=== PATIENT | female | born 1955 | race Hispanic/Latino ===

== ENCOUNTER 2020-03-03 20:58 | Emergency (ER) | payer BC ==
[2020-03-03] MEDS ORDERED: METOCLOPRAMIDE 10 MG/2mL INJ ONE (22:10)
[2020-03-03] MEDS ORDERED: NA CHLORIDE 0.9% 1,000 ML ONE (22:11)
[2020-03-03] MEDS ORDERED: DIPHENHYDRAMINE 50 MG/ML VIAL ONE (22:11)
[2020-03-03 22:13] LABS: Absolute Lymphocytes (CBC) 1.2 K/uL (0.7-4.9); Basophils % 0.5 % (0-1.3); Hematocrit 36.4 % (36.0-45.0); Lymphocytes % 13.8 % (15.3-44.8); MPV 9.6 fL (7.6-11.3); RBC Red Blood Cell Count 4.08 M/uL (3.86-4.86)
[2020-03-03 22:16] LABS: Protime INR 0.98
[2020-03-03 22:24] LABS: ALT/SGPT 38 U/L (12-78); AST/SGOT 21 U/L (15-37); Albumin 4.3 g/dL (3.4-5.0); Alkaline Phosphatase 98 U/L (45-117); BUN Blood Urea Nitrogen 20 mg/dL (7-18); Bicarbonate 25 mmol/L (21-32); Bilirubin Direct < 0.1 mg/dL (0-0.2); Bilirubin Total 0.4 mg/dL (0.2-1.0); Glucose Level 114 mg/dL (74-106); Magnesium 2.7 mg/dL (1.8-2.4); Potassium 3.8 mmol/L (3.5-5.1); Protein, Total 8.4 g/dL (6.4-8.2); Sodium Level 141 mmol/L (136-145)
[2020-03-04] MEDS ORDERED: CEFTRIAXONE/SWI 1gm 1 GM/10 ML SYR ONE (00:48)
--- NOTE | 2020-03-04 00:48 | EDPHYS ---
Physician Documentation [facility] Name: Malena Mckeon Age: 64 yrs Sex: Female : 1955 Arrival Date: 03/03/2020 Time: 20:59 Bed 18 Private MD: ED Physician Joe Hairston HPI: 03/03 22:52 This 64 yrs old Female presents to ER via Ambulatory with complaints of mh7 Migraine, Nausea. 22:52 The patient complains of pain to the top of head. The patient describes the headache as mh7 intermittent, throbbing. Onset: The symptoms/episode began/occurred 6 day(s) ago. Associated signs and symptoms: Pertinent positives: nausea, Photophobia Right facial Smith's palsy for 3 days, Pertinent negatives: altered mental status, dizziness, fever, malaise, neck stiffness, paresthesias, rash, sinus congestion, sinus tenderness, vision changes, vision loss, vomiting, weakness, vertigo. Severity of symptoms: At its worst the pain was moderate, 5 day(s) ago, in the emergency department the pain has improved, moderately. Headache History: The patient has had previous headaches and this one is similar to previous episodes. The symptoms are alleviated by NSAIDS, the symptoms are aggravated by lights, movement, noise, stress. 03/04 00:43 Patient reports symptoms started after receiving COVID vaccine.. mh7 Historical: - Allergies: 03/03 21:23 No Known Allergies; ll1 - PMHx: 21:23 Hypothyroidism; High Cholesterol; ll1 - PSHx: 21:23 Cholecystectomy; mass removed from breast; ll1 - Immunization history:: Flu vaccine is up to date. - Social history:: Smoking status: Patient denies any tobacco usage or history of. ROS: 22:52 Constitutional: Negative for fever, chills, and weight loss, Eyes: Negative for injury, mh7 pain, redness, and discharge, ENT: Negative for injury, pain, and discharge, Neck: Negative for injury, pain, and swelling, Cardiovascular: Negative for chest pain, palpitations, and edema, Respiratory: Negative for shortness of breath, cough, wheezing, and pleuritic chest pain, Back: Negative for injury and pain, : Negative for injury, bleeding, discharge, and swelling, MS/Extremity: Negative for injury and deformity, Skin: Negative for injury, rash, and discoloration, Psych: Negative for depression, anxiety, suicide ideation, homicidal ideation, and hallucinations, Allergy/Immunology: Negative for hives, rash, and allergies, Endocrine: Negative for neck swelling, polydipsia, polyuria, polyphagia, and marked weight changes, Hematologic/Lymphatic: Negative for swollen nodes, abnormal bleeding, and unusual bruising. Exam: 22:52 Constitutional: This is a well developed, well nourished patient who is awake, alert, mh7 and in no acute distress. 22:52 Head/Face: Normocephalic, atraumatic. 22:52 Neck: Trachea midline, no thyromegaly or masses palpated, and no cervical lymphadenopathy. Supple, full range of motion without nuchal rigidity, or vertebral point tenderness. No Meningismus. Chest/axilla: Normal chest wall appearance and motion. Nontender with no deformity. No lesions are appreciated. Cardiovascular: Regular rate and rhythm with a normal S1 and S2. No gallops, murmurs, or rubs. Normal PMI, no JVD. No pulse deficits. Respiratory: Lungs have equal breath sounds bilaterally, clear to auscultation and percussion. No rales, rhonchi or wheezes noted. No increased work of breathing, no retractions or nasal flaring. Abdomen/GI: Soft, non-tender, with normal bowel sounds. No distension or tympany. No guarding or rebound. No evidence of tenderness throughout. Back: No spinal tenderness. No costovertebral tenderness. Full range of motion. Skin: Warm, dry with normal turgor. Normal color with no rashes, no lesions, and no evidence of cellulitis. MS/ Extremity: Pulses equal, no cyanosis. Neurovascular intact. Full, normal range of motion. 22:52 Psych: Awake, alert, with orientation to person, place and time. Behavior, mood, and affect are within normal limits. 22:52 Head/face: 22:52 Eyes: Periorbital structures: appear normal, Pupils: equal, round, and reactive to light and accomodation, Extraocular movements: intact throughout, Conjunctiva: normal, Corneas: are normal, Sclera: no appreciated abnormality, Lids and lashes: ptosis, of the right eye, funduscopic exam reveals no obvious abnormalities, Visual herrera: are intact, Nystagmus: is not appreciated. 22:52 Neuro: Orientation: is normal, Mentation: is normal, Memory: is normal, Cranial nerves: Funduscopic exam reveals no obvious abnormalities, extraocular movements are intact, facial droop noted on right, with forehead involved. Ptosis of right lower eyelid, Cerebellar function: is grossly normal, Motor: is normal, Sensation: is normal, Gait: is steady, at a normal pace, without difficulty, Deep tendon reflexes are normal, Babinski testing is normal, seizure activity, is not displayed by the patient, Abnormal movements: there are no abnormal movements. Vital Signs: 21:20 BP 170 / 91; Pulse 94; Resp 16; Temp 98.8; Pulse Ox 99% on R/A; Weight 63.96 kg; Height ll1 4 ft. 11 in. (149.86 cm); Pain 08/26; 03/04 00:45 BP 126 / 77; Pulse 76; Resp 18; Temp 98.7; Pulse Ox 99% ; ea 03/03 21:20 Body Mass Index 28.48 (63.96 kg, 149.86 cm) ll1 Sheri Coma Score: 00:43 Eye Response: spontaneous(4). Verbal Response: oriented(5). Motor Response: obeys mh7 commands(6). Total: 15. MDM: 03/03 21:10 Patient medically screened. kb 03/04 00:43 Differential diagnosis: cluster headache, cerebral vascular accident, hypertensive mh7 headache, intracerebral hemorrhage, migraine, tension headache, Smith's palsy. Data reviewed: vital signs, nurses notes, lab test result(s), CBC, electrolytes, urinalysis, radiologic studies, CT scan. Data interpreted: Pulse oximetry: on room air is 99 %. Interpretation: normal. Counseling: I had a detailed discussion with the patient and/or guardian regarding: the historical points, exam findings, and any diagnostic results supporting the discharge/admit diagnosis, the presence of at least one elevated blood pressure reading (>120/80) during this emergency department visit, lab results, radiology results, the need for outpatient follow up, a neurologist, to return to the emergency department if symptoms worsen or persist or if there are any questions or concerns that arise at home. Response to treatment: the patient's symptoms have resolved after treatment, the patient's blood pressure is in an acceptable range, mental status has returned to baseline, the patient no longer shows bradycardia, the patient is not short of breath, the patient is not tachycardic, the patient's pain is gone, the patient's temperature has normalized. 03/03 21:41 Order name: CBC with Diff [facility] 03/03 21:41 Order name: Basic Metabolic Panel [facility] 03/03 21:41 Order name: Protime (+inr); Complete Time: 22:26 [facility] 03/03 21:41 Order name: Ptt, Activated; Complete Time: 22:26 [facility] 03/03 21:41 Order name: LFT's; Complete Time: 22:26 [facility] 03/03 21:41 Order name: Magnesium; Complete Time: 22:26 [facility] 03/03 21:41 Order name: CT Head Brain wo Cont [facility] 03/03 21:42 Order name: CBC with Automated Diff; Complete Time: 22:26 EDMS 03/03 21:42 Order name: Basic Metabolic Panel; Complete Time: 22:26 EDMS 03/04 00:31 Order name: Urine Culture 03/04 00:41 Order name: Urine Dipstick--Ancillary (enter results) mw2 Administered Medications: 03/03 22:02 Drug: NS 0.9% 1000 ml Route: IV; Rate: 1000 ml; Site: right antecubital; 03/04 00:49 Follow up: Response: No adverse reaction; IV Status: Completed infusion; IV Intake: ea 1000ml 03/03 22:02 Drug: Reglan 10 mg Route: IVP; Site: right antecubital; ea 03/04 00:49 Follow up: Response: No adverse reaction 03/03 22:02 Drug: Benadryl 50 mg Route: IVP; Site: right antecubital; ea 03/04 00:49 Follow up: Response: No adverse reaction 00:34 Drug: Rocephin 1 grams Route: IV; Rate: 1 bolus; Site: right antecubital; ea 00:55 Follow up: Response: No adverse reaction; IV Status: Completed infusion; IV Intake: 5ml ea Disposition: 03/04/20 00:47 Discharged to Home. Impression: Headache, Smith's palsy, Urinary tract infection, site not specified. - Condition is Stable. - Discharge Instructions: Smith Palsy, Adult, General Headache Without Cause, Urinary Tract Infection, Adult, [id number]. - Prescriptions for Keflex 500 mg Oral Capsule - take 1 capsule by ORAL route every 12 hours for 7 days; 14 capsule. - Medication Reconciliation Form, Thank You Letter, Antibiotic Education, Prescription Opioid Use form. - Follow up: Private Physician; When: 1 - 2 days; Reason: Worsening of condition, Recheck today's complaints, Continuance of care, Re-evaluation by your physician. Follow up: Stan Ann MD; When: 1 - 2 days; Reason: Worsening of condition, Recheck today's complaints. - Problem is an ongoing problem. - Symptoms have improved. Signatures: Dispatcher [employer] EDMS Maryellen Hdez, PLATE AND WELD INSPECTOR-C PLATE AND WELD INSPECTOR-Sonia Chavira RN RN ea Lewis, Lynsay, RN RN ll1 Joe Hairston MD MD mh7 Corrections: (The following items were deleted from the chart) 01:01 00:47 03/04/2020 00:47 Discharged to Home. Impression: Headache; Smith's palsy; Urinary ea tract infection, site not specified. Condition is Stable. Forms are Medication Reconciliation Form, Thank You Letter, Antibiotic Education, Prescription Opioid Use. Follow up: Private Physician; When: 1 - 2 days; Reason: Worsening of condition, Recheck today's complaints, Continuance of care, Re-evaluation by your physician. Follow up: Stan Ann; When: 1 - 2 days; Reason: Worsening of condition, Recheck today's complaints. Problem is an ongoing problem. Symptoms have improved. mh7
--- NOTE | 2020-03-04 00:48 | ER ---
Nurse's Notes [facility] Name: Malena Mckeon Age: 64 yrs Sex: Female : 1955 Arrival Date: 03/03/2020 Time: 20:59 Bed 18 Private MD: Diagnosis: Headache;Smith's palsy;Urinary tract infection, site not specified Presentation: 03/03 21:20 Chief complaint: Patient states: PENA, nausea, and jaw pains since Friday. States she was ll1 diagnosed with Smith's palsy Friday by Dr. Ivy office. Seen at [place] yesterday for PENA. CT and blood work negative. Coronavirus screen: Client denies travel out of the [place] in the last 14 days. At this time, the client does not indicate any symptoms associated with coronavirus-19. Ebola Screen: Patient denies travel to an Ebola-affected area in the 21 days before illness onset. Initial Sepsis Screen: Does the patient meet any 2 criteria? HR > 90 bpm. No. Patient's initial sepsis screen is negative. Does the patient have a suspected source of infection? Yes: S/S of meningitis or endocarditis. Risk Assessment: Do you want to hurt yourself or someone else? Patient reports no desire to harm self or others. Onset of symptoms was February 28, 2020. 21:20 Method Of Arrival: Ambulatory 1 21:20 Acuity: STEFAN 3 ll1 Triage Assessment: 21:24 General: Appears uncomfortable, Behavior is calm, cooperative, appropriate for age. ll1 Pain: Complains of pain in head Pain currently is 7 out of 10 on a pain scale. Quality of pain is described as aching, Pain began 5 days ago. Neuro: Level of Consciousness is awake, alert, obeys commands, Oriented to person, place, time, situation, Appropriate for age Motor Setter are equal bilaterally Moves all extremities. Full function Gait is steady, Speech is normal, Reports headache. Cardiovascular: No deficits noted. Respiratory: No deficits noted. GI: Abdomen is flat, Reports nausea. Historical: - Allergies: 21:23 No Known Allergies; ll1 - PMHx: 21:23 Hypothyroidism; High Cholesterol; ll1 - PSHx: 21:23 Cholecystectomy; mass removed from breast; ll1 - Immunization history:: Flu vaccine is up to date. - Social history:: Smoking status: Patient denies any tobacco usage or history of. Screenin:08 Abuse screen: Denies threats or abuse. Nutritional screening: No deficits noted. ea Tuberculosis screening: No symptoms or risk factors identified. Fall Risk IV access (20 points). Assessment: 22:08 Reassessment: Patient and/or family updated on plan of care and expected duration. Pain ea level reassessed. Patient is alert, oriented x 3, equal unlabored respirations, skin warm/dry/pink. Pt taken to CT. 22:09 Reassessment: Roseanne [phone]. ea 23:21 Reassessment: Patient and/or family updated on plan of care and expected duration. Pain ea level reassessed. Pt resting with eyes closed, respirations even and unlabored, chest expansions even and symmetrical. No s/s of pain or discomfort noted at this time. 03/04 01:00 Reassessment: Patient and/or family updated on plan of care and expected duration. Pain ea level reassessed. Patient is alert, oriented x 3, equal unlabored respirations, skin warm/dry/pink. Discharge instruction given to patient, verbalized the understanding of instruction. Pt left ED ambulatory tolerating well. Vital Signs: 03/03 21:20 BP 170 / 91; Pulse 94; Resp 16; Temp 98.8; Pulse Ox 99% on R/A; Weight 63.96 kg; Height ll1 4 ft. 11 in. (149.86 cm); Pain 7/10; 03/04 00:45 BP 126 / 77; Pulse 76; Resp 18; Temp 98.7; Pulse Ox 99% ; ea 03/03 21:20 Body Mass Index 28.48 (63.96 kg, 149.86 cm) ll1 Sheri Coma Score: 00:43 Eye Response: spontaneous(4). Verbal Response: oriented(5). Motor Response: obeys mh7 commands(6). Total: 15. ED Course: 03/03 20:59 Patient arrived in ED. cl3 21:10 Maryellen Hdez FNP-C is [facility]. kb 21:10 Joe Hairston MD is Attending Physician. kb 21:20 Joe Hairston MD is Attending Physician. mh7 21:20 Arm band placed on Patient placed in an exam room, on a stretcher. ll1 21:23 Triage completed. ll1 21:39 Sonia Quiñones, RN is Primary Nurse. ea 22:00 Patient has correct armband on for positive identification. Call light in reach. Side ea rails up X2. 22:10 CT Head Brain wo Cont In Process Unspecified. EDRI 03/04 00:46 Stan Ann MD is Referral Physician. 7 00:51 No provider procedures requiring assistance completed. ea 00:59 IV discontinued, intact, bleeding controlled, No redness/swelling at site. Pressure ea dressing applied. Administered Medications: 03/03 22:02 Drug: NS 0.9% 1000 ml Route: IV; Rate: 1000 ml; Site: right antecubital; ea 03/04 00:49 Follow up: Response: No adverse reaction; IV Status: Completed infusion; IV Intake: ea 1000ml 03/03 22:02 Drug: Reglan 10 mg Route: IVP; Site: right antecubital; ea 03/04 00:49 Follow up: Response: No adverse reaction ea 03/03 22:02 Drug: Benadryl 50 mg Route: IVP; Site: right antecubital; ea 03/04 00:49 Follow up: Response: No adverse reaction ea 00:34 Drug: Rocephin 1 grams Route: IV; Rate: 1 bolus; Site: right antecubital; ea 00:55 Follow up: Response: No adverse reaction; IV Status: Completed infusion; IV Intake: 5ml ea Intake: 00:49 IV: 1000ml; Total: 1000ml. ea 00:55 IV: 5ml; Total: 1005ml. ea Outcome: 00:47 Discharge ordered by . 7 00:59 Discharged to home ambulatory. ea 00:59 Condition: stable 00:59 Discharge instructions given to patient, Instructed on discharge instructions, follow up and referral plans. medication usage, Demonstrated understanding of instructions, follow-up care, medications. 01:01 Patient left the ED. ea Signatures: Dispatcher [employer] EDRI Maryellen Hdez, NEUROUROLOGIST-C NEUROUROLOGIST-CkSonia Small, RN RN Ricardo Matias cl3 Rufus Ross RN RN 1 Joe Hairston MD MD [facility]
[2020-03-04 01:06] VITALS: O2SAT 99
[2020-03-04 01:06] LABS: Urine Blood NEGATIVE (NEG); Urine Glucose NEGATIVE (NEG); Urine Protein NEGATIVE (NEG); Urine Specific Gravity 1.015 (1.005-1.030)
[2020-03-04 01:08] VITALS: BP 126/77; TEMP 98.7
--- NOTE | 2020-03-04 11:51 | RAD REPORT ---
EXAM DESCRIPTION: CT - Head Brain Wo Cont - 03/03/2020 10:10 pm CLINICAL HISTORY: Smith's Palsy;Headache Headache, drowsiness COMPARISON: Head Brain Wo Cont dated 10/06/2018; 3D SCR AC BILAT W/CAD dated 12/22/2018; 3D SCR AC B ILAT W/CAD dated 01/26/2020 TECHNIQUE: All CT scans are performed using dose optimization technique as appropriate and may inclu de automated exposure control or mA/KV adjustment according to patient size. FINDINGS: No intracranial hemorrhage, hydrocephalus or extra-axial fluid collection.Mild periventric ular and deep white matter chronic microvascular ischemic changes.No areas of brain edema or evidence of midline shift. The paranasal sinuses and mastoids are clear. The calvarium is intact. Vertebral atherosclerosis. IMPRESSION: No acute intracranial abnormality.
== END 2020-03-04 01:01 | disposition home or self-care (01) ==
LOC: ER 20:58
DX: N39.0 Urinary tract infection, site not specified (principal); G51.0 Bell's palsy
CPT/HCPCS: 96365; 96361; 87088; 85025; 87086; 80048; 36415; 83735; 85610; 80076; 85730; 81003; 70450; 96375; 99283; J2765; J1200; J0696; J7030

== ENCOUNTER 2024-07-10 19:46 | Emergency (ER) | payer OTHER ==
[2024-07-10 20:48] LABS: Absolute Basophils 0.1 K/uL (0-0.5); Absolute Eosinophils 0.1 K/uL (0-0.5); Absolute Lymphocytes (CBC) 1.6 K/uL (0.7-4.9); Absolute Monocytes 0.5 K/uL (0.1-1.3); Absolute Neutrophil 3.3 K/uL (1.8-8.0); Basophils % 1.1 % (0-1.3); Eosinophils % 2.6 % (0-4.4); Hematocrit 35.5 % (36.0-45.0); Hemoglobin 12.5 g/dL (12.0-15.0); Lymphocytes % 28.3 % (15.3-44.8); MCH 30.7 pg (27.0-35.0); MCHC 35.1 g/dL (32.0-36.0); MCV 87.5 fL (80-100); Nucleated Red Blood Cells % 0.1 % (0-0); Platelets 230 thou/uL (152-406); RBC Red Blood Cell Count 4.06 M/uL (3.86-4.86); Red Cell Distribution Width 13.5 % (12.1-15.2)
[2024-07-10 20:50] LABS: PT Prothrombin Time 10.2 SECONDS (10-13.0); Protime INR 0.89
--- NOTE | 2024-07-10 21:01 | RAD REPORT ---
EXAMINATION: Head Brain Wo Cont CLINICAL INDICATION: Female, 68 years old.DIZZINESS TECHNIQUE: Axial CT images from the skull base to the vertex without intravenous contrast. Coronal an d sagittal reformatted images were created from the data set. One or more of the following dose reduction techniques were used: Automated exposure control, adjustment of the mA and/or kV according to patient size, and/or iterative reconstruction. Unless otherwise specified, incidental findings do not require dedicated imaging follow-up. [id number]. COMPARISON: 03/03/2020 FINDINGS: INTRACRANIAL: No acute intracranial hemorrhage. No hydrocephalus. No mass effect or midline shift. Mi ld chronic small vessel ischemic changes.Mild cerebral atrophy. VASCULATURE: Intracranial atherosclerotic changes. SCALP/SKULL: No calvarial fracture identified. No acute soft tissue abnormality. SINUSES: The visualized paranasal sinuses are mostly clear. No significant mastoid fluid. IMPRESSION: No acute intracranial abnormality.
[2024-07-10] MEDS ORDERED: KETOROLAC 30 MG/ML INJ ONE (21:02)
[2024-07-10] MEDS ORDERED: DIPHENHYDRAMINE 50 MG/ML VIAL ONE (21:02)
[2024-07-10] MEDS ORDERED: METOCLOPRAMIDE 10 MG/2mL INJ ONE (21:02)
[2024-07-10] MEDS ORDERED: NA CHLORIDE 0.9% 500 ML ONE (21:02)
[2024-07-10] MEDS ORDERED: ONDANSETRON 4 MG/2 ML VIAL ONE (21:02)
[2024-07-10 21:05] LABS: ALT/SGPT 36 U/L (13-56); AST/SGOT 22 U/L (15-37); Albumin 3.6 g/dL (3.4-5.0); Albumin/Globulin Ratio 0.9 (1.1-1.8); Alkaline Phosphatase 90 U/L (45-117); Anion Gap 7.6 mEq/L (5.0-15.0); BUN Blood Urea Nitrogen 9 mg/dL (7-18); Bicarbonate 28 mEq/L (21-32); Bilirubin Total 0.2 mg/dL (0.2-1.0); Globulin 3.9 g/dL (2.3-3.5); Glomerular Filtration Rate 101 ml/min (=/>90); Glucose Level 144 mg/dL (74-106); Magnesium 2.3 mg/dL (1.6-2.4); NT PRO-BNP 52 pg/mL (<125); Potassium 3.6 mEq/L (3.5-5.1); Protein, Total 7.5 g/dL (6.4-8.2); Sodium Level 138 mEq/L (136-145); Thyroid Stimulating Hormone 0.993 uIU/mL (0.358-3.740); Troponin High Sensitivity 5.2 pg/mL (<58.9)
[2024-07-10 21:06] LABS: Bilirubin Direct < 0.2 mg/dL (0-0.2)
--- NOTE | 2024-07-10 21:10 | RAD REPORT ---
EXAM: Chest Single View HISTORY: 68 years Female CHEST PAIN COMPARISON: 09/22/2017 FINDINGS: LUNGS/PLEURA: The lungs are clear. No pleural effusions or pneumothorax. No pulmonary edema. CARDIAC/MEDIASTINUM: The cardiac silhouette is within normal limits. UPPER ABDOMEN: No significant abnormality. BONES: No acute abnormality. LINES/TUBES/OTHER: N/A IMPRESSION: No evidence of acute cardiopulmonary disease. No significant change from prior.
--- NOTE | 2024-07-10 23:59 | EDPHYS ---
Physician Documentation [facility] Name: Malena Mckeon Age: 68 yrs Sex: Female : 1955 Arrival Date: 07/10/2024 Time: 19:46 Bed 5 Private MD: ED Physician Gael Simeon HPI: 07/10 20:06 This 68 yrs old Female presents to ER via Unassigned with complaints of sp4 Dizziness, Headache, Weakness, Chest Tightness. 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 Historical: - Allergies: 20:18 No Known Allergies; dd2 - PMHx: 20:18 High Cholesterol; Hypothyroidism; DEBBIE'S; dd2 - PSHx: 20:18 None; dd2 - Immunization history:: Adult Immunizations up to date. - Infectious Disease History:: Denies. - Social history:: Smoking status: Patient denies any tobacco usage or history of. - Family history:: not pertinent. ROS: 23:51 Constitutional: Positive subjective fever, positive headache, positive nausea, positive sp4 chest discomfort 23:51 All other systems are negative, Exam: 23:51 Constitutional: This is a well developed, well nourished patient who is awake, alert, sp4 and in no acute distress. Head/Face: Normocephalic, atraumatic. Eyes: Pupils equal round and reactive to light, extra-ocular motions intact. Lids and lashes normal. Conjunctiva and sclera are not injected. Cornea within normal limits. Periorbital areas with no swelling, redness, or edema. ENT: Nares patent. No nasal discharge, no septal abnormalities noted. Tympanic membranes are normal and external auditory canals are clear. Oropharynx with no redness, swelling, or masses, exudates, or evidence of obstruction, uvula midline. Mucous membranes moist. Neck: Trachea midline, no thyromegaly or masses palpated, and no cervical lymphadenopathy. Supple, full range of motion without nuchal rigidity, or vertebral point tenderness. Chest/axilla: Normal chest wall appearance and motion. Nontender with no deformity. No lesions are appreciated. Cardiovascular: Regular rate and rhythm with a normal S1 and S2. No gallops, murmurs, or rubs. Normal PMI, no JVD. No pulse deficits. Respiratory: Lungs have equal breath sounds bilaterally, clear to auscultation and percussion. No rales, rhonchi or wheezes noted. No increased work of breathing, no retractions or nasal flaring. Abdomen/GI: Soft, with normal bowel sounds. No distension or tympany. No guarding or rebound. No evidence of tenderness throughout. Back: No spinal tenderness. No costovertebral tenderness. Skin: Warm, dry with normal turgor. Normal color with no rashes, no lesions, and no evidence of cellulitis. MS/ Extremity: Pulses equal, no cyanosis. Neurovascular intact. Full, normal range of motion. Neuro: Awake and alert, GCS 15, oriented to person, place, time, and situation. Cranial nerves II-XII grossly intact. Motor strength 5/5 in all extremities. Sensory grossly intact. Psych: Awake, alert, with orientation to person, place and time. Behavior, mood, and affect are within normal limits 23:51 ECG was reviewed by the Attending Physician. EKG 7 normal sinus rhythm rate 84, normal EKG Vital Signs: 20:13 BP 149 / 94; Pulse 94; Resp 16; Temp 98.4; Pulse Ox 99% on R/A; Weight 64.41 kg; Height dd2 4 ft. 11 in. ; 21:13 BP 149 / 82; Pulse 84; Resp 16; Temp 98.4; Pulse Ox 95% ; Pain 8/10; bm8 22:41 BP 130 / 66; Pulse 77; Resp 18; Temp 98.4; Pulse Ox 100% ; Pain 0/10; bm8 23:13 BP 126 / 62; Pulse 75; Resp 17 S; Pulse Ox 95% ; ha1 23:52 BP 133 / 69; Pulse 75; Resp 17; Temp 98.4; Pulse Ox 96% ; Pain 0/10; bm8 20:13 Body Mass Index 28.68 (64.41 kg, 149.86 cm) dd2 21:13 Pain Scale: Adult bm8 22:41 Pain Scale: Adult bm8 23:52 Pain Scale: Adult bm8 NIH Stroke Scale Scores: 23:58 NIHSS Score: 0 sp4 Sheri Coma Score: 21:13 Eye Response: spontaneous(4). Motor Response: obeys commands(6). Verbal Response: bm8 oriented(5). Total: 15. 22:41 Eye Response: spontaneous(4). Motor Response: obeys commands(6). Verbal Response: bm8 oriented(5). Total: 15. 23:51 Eye Response: spontaneous(4). Motor Response: obeys commands(6). Verbal Response: sp4 oriented(5). Total: 15. 23:52 Eye Response: spontaneous(4). Motor Response: obeys commands(6). Verbal Response: bm8 oriented(5). Total: 15. MDM: 20:07 Medical Screening Exam initiated sp4 23:57 Differential diagnosis: cardiac arrhythmia, generalized weakness, head injury, sp4 near-syncope, sepsis, syncope, TIA, vertigo. Data reviewed: vital signs, nurses notes, lab test result(s), EKG, radiologic studies, CT scan, plain films. Consideration of Admission/Observation Escalation of care including admission/observation considered. 07/11 00:03 ED course: EXAM: Chest Single View HISTORY: 68 years Female CHEST PAIN COMPARISON: 4 09/22/2017 FINDINGS: LUNGS/PLEURA: The lungs are clear. No pleural effusions or pneumothorax. No pulmonary edema. CARDIAC/MEDIASTINUM: The cardiac silhouette is within normal limits. UPPER ABDOMEN: No significant abnormality. BONES: No acute abnormality. LINES/TUBES/OTHER: N/A IMPRESSION: No evidence of acute cardiopulmonary disease. No significant change from prior. . ED course: EXAMINATION: Head Brain Wo Cont CLINICAL INDICATION: Female, 68 years old.DIZZINESS TECHNIQUE: Axial CT images from the skull base to the vertex without intravenous contrast. Coronal and sagittal reformatted images were created from the data set. One or more of the following dose reduction techniques were used: Automated exposure control, adjustment of the mA and/or kV according to patient size, and/or iterative reconstruction. Unless otherwise specified, incidental findings do not require dedicated imaging follow-up. [id number]. COMPARISON: 03/03/2020 FINDINGS: INTRACRANIAL: No acute intracranial hemorrhage. No hydrocephalus. No mass effect or midline shift. Mild chronic small vessel ischemic changes.Mild cerebral atrophy. VASCULATURE: Intracranial atherosclerotic changes. SCALP/SKULL: No calvarial fracture identified. No acute soft tissue abnormality. SINUSES: The visualized paranasal sinuses are mostly clear. No significant mastoid fluid. IMPRESSION: No acute intracranial abnormality. . 07/10 20:07 Order name: Basic Metabolic Panel; Complete Time: 23:43 4 07/10 20:07 Order name: CBC with Diff; Complete Time: 23:43 4 07/10 20:07 Order name: LFT's; Complete Time: 23:43 4 07/10 20:07 Order name: Magnesium; Complete Time: 23:43 4 07/10 20:07 Order name: NT PRO-BNP; Complete Time: 23:43 4 07/10 20:07 Order name: PT-INR; Complete Time: 23:43 4 07/10 20:07 Order name: Troponin HS; Complete Time: 23:43 4 07/10 20:07 Order name: TSH; Complete Time: 23:43 4 07/10 20:07 Order name: T4 Free; Complete Time: 23:43 07/10 20:07 Order name: XRAY Chest (1 view); Complete Time: 23:43 4 07/10 20:07 Order name: CT Head Brain wo Cont; Complete Time: 23:43 4 07/10 20:07 Order name: Cardiac monitoring; Complete Time: 21:10 07/10 20:07 Order name: EKG - Nurse/Tech; Complete Time: 20:58 4 07/10 20:07 Order name: IV Saline Lock; Complete Time: 20:57 4 07/10 20:07 Order name: Labs collected and sent; Complete Time: 20:57 4 07/10 20:07 Order name: O2 Per Protocol; Complete Time: 21:10 4 07/10 20:07 Order name: O2 Sat Monitoring; Complete Time: 21:10 4 EC/24 20:47 Rate is 84 beats/min. Rhythm is regular, Normal Sinus Rhythm. QRS [place] is Normal. DC sp4 interval is normal. QRS interval is normal. QT interval is normal. No Q waves. T waves are Normal. No ST changes noted. Clinical impression: No evidence of ischemia. Interpreted by me. Reviewed by me. Administered Medications: 21:09 Drug: diphenhydrAMINE IVP 25 mg IVP once Route: IVP; Site: right antecubital; bm8 22:37 Follow up: Response: No adverse reaction bm8 21:09 Drug: metoCLOPramide IVP 10 mg IVP once; over 1 to 2 minutes Route: IVP; Site: right bm8 antecubital; 22:37 Follow up: Response: No adverse reaction bm8 21:10 Drug: NS 0.9% IV 500 ml IV at bolus once; to be given as a bolus over 30 minutes Route: bm8 IV; Rate: bolus; Site: right antecubital; 22:41 Follow up: Response: No adverse reaction; IV Status: Completed infusion bm8 21:10 Drug: Ondansetron IVP 4 mg IVP once; over 2 minutes Route: IVP; Site: right antecubital;bm8 22:38 Follow up: Response: No adverse reaction bm8 21:10 Drug: Ketorolac IVP 30 mg IVP once Route: IVP; Site: right antecubital; bm8 22:37 Follow up: Response: No adverse reaction bm8 Disposition Summary: 07/10/24 23:59 Discharge Ordered Notes: Location: Home sp4 Problem: new sp4 Symptoms: have improved sp4 Condition: Stable sp4 Diagnosis - Tension-type headache, unspecified, not intractable sp4 - Noncardiac chest pain, acute dizziness, acute generalized weakness sp4 Followup: sp4 - With: Private Physician - When: 7 - 10 days - Reason: Recheck today's complaints Discharge Instructions: - Discharge Summary Sheet sp4 - Tension Headache, Adult, [id number] sp4 Forms: - Patient Portal Instructions sp4 Prescriptions: - Fioricet 50-300-40 mg Oral capsule - take 1 capsule ORAL route 3 times per day as needed for pain; 30 capsule; sp4 Refills: 0, Product Selection Permitted NIH Stroke Scale - NIH Stroke Score Date: 07/10/2024 Time: 23:58 Total Score = 0 10. Dysarthria (speech clarity - read or repeat words) - 0(Normal) 11. Extinction and Inattention (visual/tactile/auditory/spatial/personal) - 0(No abnormality) 1a. Level of Consciousness (LOC) - 0(Alert) 1b. Level of Consciousness (LOC) (Month \T\ Age) - 0(Both) 1c. LOC Commands (Open \T\ Closes Eyes/Passenger Relations Representative) - 0(Both) 2. Best Gaze (Lateral Gaze Paresis) - 0(Normal) 3. Visual Field Loss - 0(No visual loss) 4. Facial Palsy - 0(Normal) 5a. Left Arm: Motor (10-second hold) - 0(No drift) 5b. Right Arm: Motor (10-second hold) - 0(No drift) 6a. Left Leg: Motor (5-second hold - always test supine) - 0(No drift) 6b. Right Leg: Motor (5-second hold - always test supine) - 0(No drift) 7. Limb Ataxia (finger/nose \T\ heel/zhong - test with eyes open) - 0(Absent) 8. Sensory Loss (pinprick arms/legs/face) - 0(Normal) 9. Best Language: Aphasia (description/naming/reading) - 0(No aphasia) Initials: sp4 Signatures: Dispatcher [employer] EDMS Gael Simeon MD MD sp4 Maged Quinn RN RN bm8 REBEL MILLER RN RN dd2 Corrections: (The following items were deleted from the chart) 20:07 20:07 Chest Single View+RAD.RAD.BRZ ordered. EDMS EDMS 20:07 20:07 Head Brain Wo Cont+CT.RAD.BRZ ordered. EDMS EDMS 20:08 20:08 THYROID STIMULAT HORMONE+C.LAB.BRZ ordered. EDMS EDMS 20:08 20:08 T4 FREE+C.LAB.BRZ ordered. EDMS EDMS
--- NOTE | 2024-07-10 23:59 | ER ---
Nurse's Notes [facility] Name: Malena Mcekon Age: 68 yrs Sex: Female : 1955 Arrival Date: 07/10/2024 Time: 19:46 Bed 5 Private MD: Diagnosis: Tension-type headache, unspecified, not intractable;Noncardiac chest pain, acute dizziness, acute generalized weakness Presentation: 07/10 20:13 Chief complaint: Patient states: HAD HORMONE PELLETS PLACED FRIDAY 1 WEEK AGO AND BEGAN dd2 HAVING HEADACHE, CHEST TIGHTNESS, WEAKNESS, FATIGUE AND NAUSEA FRIDAY. Coronavirus screen: At this time, the client does not indicate any symptoms associated with coronavirus-19. Ebola Screen: No symptoms or risks identified at this time. Initial Sepsis Screen: Does the patient meet any 2 criteria? No. Patient's initial sepsis screen is negative. Does the patient have a suspected source of infection? No. Patient's initial sepsis screen is negative. Risk Assessment: Do you want to hurt yourself or someone else? Patient reports no desire to harm self or others. Onset of symptoms was July 03, 2024. 20:13 Method Of Arrival: Ambulatory dd2 20:13 Acuity: STEFAN 3 dd2 Triage Assessment: 20:18 Headache History: The patient has had previous headaches and this one is similar to dd2 previous episodes. General: Appears in no apparent distress. uncomfortable, Behavior is calm, cooperative, appropriate for age. Pain: Complains of pain in HEAD, CHEST Pain currently is 7 out of 10 on a pain scale. Pain began X1 WEEK Also complains of decreased appetite, nausea, sleeplessness. Neuro: Level of Consciousness is awake, alert, obeys commands, Oriented to person, place, time, situation, Appropriate for age Loan Closer are equal bilaterally Moves all extremities. Gait is steady, Speech is normal, Facial symmetry appears normal, Pupils are PERRLA, Intact Reports headache in entire. Historical: - Allergies: 20:18 No Known Allergies; dd2 - PMHx: 20:18 High Cholesterol; Hypothyroidism; CARLOS'S; dd2 - PSHx: 20:18 None; dd2 - Immunization history:: Adult Immunizations up to date. - Infectious Disease History:: Denies. - Social history:: Smoking status: Patient denies any tobacco usage or history of. - Family history:: not pertinent. Screenin:13 [facility] ED Fall Risk Assessment (Adult) History of falling in the last 3 months, bm8 including since admission No falls in past 3 months (0 pts) Confusion or Disorientation No (0 pts) Intoxicated or Sedated No (0 pts) Impaired Gait No (0 pts) Mobility Assist Device Used No (0 pt) Altered Elimination No (0 pt) Score/Fall Risk Level 0 - 2 = Low Risk Oriented to surroundings, Maintained a safe environment, Educated pt \T\ family on fall prevention, incl call for assistance when getting out of bed, Assessed \T\ reinforced patient's understanding of fall precautions, Hourly rounding (assess needs \T\ fall precautionary measures) done, Used ambulatory aids as needed (educated on \T\ assisted with), Used gait belt as appropriate. Abuse screen: Denies threats or abuse. Nutritional screening: No deficits noted. Tuberculosis screening: No symptoms or risk factors identified. Assessment: 21:13 General: Appears in no apparent distress. comfortable, Behavior is calm, cooperative, bm8 appropriate for age. Pain: Complains of pain in head Pain currently is 8 out of 10 on a pain scale. Neuro: Level of Consciousness is awake, alert, obeys commands, Oriented to person, place, time, situation, Appropriate for age Loan Closer are equal bilaterally Moves all extremities. Full function Gait is steady, Speech is normal, Facial symmetry appears normal, Pupils are PERRLA, Pupil Size: 4 mm Intact Reports dizziness, headache. Cardiovascular: Heart tones S1 S2 present Capillary refill < 3 seconds in bilateral fingers Patient's skin is warm and dry. Respiratory: Airway is patent Respiratory effort is even, unlabored, Respiratory pattern is regular, symmetrical, Breath sounds are clear bilaterally. GI: No signs and/or symptoms were reported involving the gastrointestinal system. : No signs and/or symptoms were reported regarding the genitourinary system. EENT: No signs and/or symptoms were reported regarding the EENT system. Derm: No signs and/or symptoms reported regarding the dermatologic system. Musculoskeletal: No signs and/or symptoms reported regarding the musculoskeletal system. 22:41 Reassessment: Patient appears in no apparent distress at this time. Patient and/or bm8 family updated on plan of care and expected duration. Pain level reassessed. Patient is alert, oriented x 3, equal unlabored respirations, skin warm/dry/pink. Patient denies pain at this time. Patient states feeling better. Patient states symptoms have improved. 23:18 Reassessment: Patient appears in no apparent distress at this time. Patient and/or bm8 family updated on plan of care and expected duration. Pain level reassessed. Patient is alert, oriented x 3, equal unlabored respirations, skin warm/dry/pink. Patient denies pain at this time. Patient states feeling better. Patient states symptoms have improved. 23:52 Reassessment: Patient appears in no apparent distress at this time. Patient and/or bm8 family updated on plan of care and expected duration. Pain level reassessed. Patient is alert, oriented x 3, equal unlabored respirations, skin warm/dry/pink. Patient denies pain at this time. Patient states feeling better. Patient states symptoms have improved. Vital Signs: 20:13 BP 149 / 94; Pulse 94; Resp 16; Temp 98.4; Pulse Ox 99% on R/A; Weight 64.41 kg; Height dd2 4 ft. 11 in. ; 21:13 BP 149 / 82; Pulse 84; Resp 16; Temp 98.4; Pulse Ox 95% ; Pain 8/10; bm8 22:41 BP 130 / 66; Pulse 77; Resp 18; Temp 98.4; Pulse Ox 100% ; Pain 0/10; bm8 23:13 BP 126 / 62; Pulse 75; Resp 17 S; Pulse Ox 95% ; ha1 23:52 BP 133 / 69; Pulse 75; Resp 17; Temp 98.4; Pulse Ox 96% ; Pain 0/10; bm8 20:13 Body Mass Index 28.68 (64.41 kg, 149.86 cm) dd2 21:13 Pain Scale: Adult bm8 22:41 Pain Scale: Adult bm8 23:52 Pain Scale: Adult bm8 [place] Coma Score: 21:13 Eye Response: spontaneous(4). Motor Response: obeys commands(6). Verbal Response: bm8 oriented(5). Total: 15. 22:41 Eye Response: spontaneous(4). Motor Response: obeys commands(6). Verbal Response: bm8 oriented(5). Total: 15. 23:51 Eye Response: spontaneous(4). Motor Response: obeys commands(6). Verbal Response: sp4 oriented(5). Total: 15. 23:52 Eye Response: spontaneous(4). Motor Response: obeys commands(6). Verbal Response: bm8 oriented(5). Total: 15. NIH Stroke Scale Scores: 23:58 NIHSS Score: 0 sp4 ED Course: 19:48 Patient arrived in ED. [id number] 20:06 Gael Simeon MD is Attending Physician. sp4 20:18 Triage completed. dd2 20:18 Arm band placed on left wrist. dd2 20:29 Inserted saline lock: 20 gauge in right antecubital area, using aseptic technique. sa1 Blood collected. Flushed with 10 mL NS. 20:32 Initial lab(s) drawn, by me, sent to lab. sa1 20:39 CT Head Brain wo Cont In Process Unspecified. EDMS 20:57 EKG done, by ED staff. sa1 20:57 Basic Metabolic Panel Sent. sa1 20:57 LFT's Sent. sa1 20:57 Magnesium Sent. sa1 20:57 NT PRO-BNP Sent. sa1 20:58 Troponin HS Sent. sa1 21:03 XRAY Chest (1 view) In Process Unspecified. EDMS 21:09 Maged Quinn, RN is Primary Nurse. bm8 21:13 Patient has correct armband on for positive identification. Bed in low position. Call bm8 light in reach. Side rails up X 1. Client placed on continuous cardiac and pulse oximetry monitoring. NIBP monitoring applied. ekg monitor on. Pulse ox on. NIBP on. Door closed. Noise minimized. Warm blanket given. Pillow given. Verbal reassurance given. Head of bed elevated. 21:13 No provider procedures requiring assistance completed. Patient maintains SpO2 bm8 saturation greater than 95% on room air. 07/11 00:09 Provided Education on: post er care. bm8 00:09 IV discontinued, intact, bleeding controlled, No redness/swelling at site. Pressure bm8 dressing applied. Administered Medications: 07/10 21:09 Drug: diphenhydrAMINE IVP 25 mg IVP once Route: IVP; Site: right antecubital; bm8 22:37 Follow up: Response: No adverse reaction bm8 21:09 Drug: metoCLOPramide IVP 10 mg IVP once; over 1 to 2 minutes Route: IVP; Site: right bm8 antecubital; 22:37 Follow up: Response: No adverse reaction bm8 21:10 Drug: NS 0.9% IV 500 ml IV at bolus once; to be given as a bolus over 30 minutes Route: bm8 IV; Rate: bolus; Site: right antecubital; 22:41 Follow up: Response: No adverse reaction; IV Status: Completed infusion bm8 21:10 Drug: Ondansetron IVP 4 mg IVP once; over 2 minutes Route: IVP; Site: right antecubital;bm8 22:38 Follow up: Response: No adverse reaction bm8 21:10 Drug: Ketorolac IVP 30 mg IVP once Route: IVP; Site: right antecubital; bm8 22:37 Follow up: Response: No adverse reaction bm8 Medication: 21:13 VIS not applicable for this client. bm8 Outcome: 23:59 Discharge ordered by MD. pacheco 07/11 00:09 Discharged to home ambulatory, bm8 Condition: stable Discharge instructions given to patient, family, Instructed on discharge instructions, follow up and referral plans. no drinking with medication, no driving heavy equipment, medication usage, safety practices, Demonstrated understanding of instructions, follow-up care, medications, Prescriptions given X 1, 00:10 Patient left the ED. bm8 NIH Stroke Scale - NIH Stroke Score Date: 07/10/2024 Time: 23:58 Total Score = 0 10. Dysarthria (speech clarity - read or repeat words) - 0(Normal) 11. Extinction and Inattention (visual/tactile/auditory/spatial/personal) - 0(No abnormality) 1a. Level of Consciousness (LOC) - 0(Alert) 1b. Level of Consciousness (LOC) (Month \T\ Age) - 0(Both) 1c. LOC Commands (Open \T\ Closes Eyes/Transfer Station Operator) - 0(Both) 2. Best Gaze (Lateral Gaze Paresis) - 0(Normal) 3. Visual Field Loss - 0(No visual loss) 4. Facial Palsy - 0(Normal) 5a. Left Arm: Motor (10-second hold) - 0(No drift) 5b. Right Arm: Motor (10-second hold) - 0(No drift) 6a. Left Leg: Motor (5-second hold - always test supine) - 0(No drift) 6b. Right Leg: Motor (5-second hold - always test supine) - 0(No drift) 7. Limb Ataxia (finger/nose \T\ heel/zhong - test with eyes open) - 0(Absent) 8. Sensory Loss (pinprick arms/legs/face) - 0(Normal) 9. Best Language: Aphasia (description/naming/reading) - 0(No aphasia) Initials: sp4 Signatures: Dispatcher [employer] EDMS Janice Sow [id number] Juliann Curtis, RN RN ha1 Gael Simeon MD MD sp4 Maged Quinn RN RN bm8 Sultan Dwayne sa1 REBEL MILLER RN RN dd2 Corrections: (The following items were deleted from the chart) 07/10 23:19 23:18 BP 110 / 82; Pulse 64bpm; Resp 20bpm; Pulse Ox 100%; Temp 98.1F; Pain bm8 0/10, Adult; bm8 23:19 23:18 GCS: 15, bm8 bm8
[2024-07-11 00:32] VITALS: TEMP 98.4
[2024-07-11 00:33] VITALS: BP 133/69; O2SAT 96
--- NOTE | 2024-07-13 12:25 | EKG ---
Test Date: 2024-07-10 Test Time: 20:47:54 General Pediatrician: MEASUREMENT RESULTS: Intervals: Rate: 84 [place]: 174 QRSD: 66 QT: 376 QTc: 444 [place]: P: 55 [place]: 174 QRS: 40 T: 52 INTERPRETIVE STATEMENTS: Normal sinus rhythm Low voltage QRS Cannot rule out Anterior infarct, age undetermined Abnormal ECG No previous ECG available for comparison Electronically Signed On 07-13-24 12:20:12 CDT by Agus Torres
== END 2024-07-11 00:10 | disposition home or self-care (01) ==
LOC: ER 19:46
DX: G44.209 Tension-type headache, unspecified, not intractable (principal); R07.89 Other chest pain; R42 Dizziness and giddiness; R53.1 Weakness; E78.00 Pure hypercholesterolemia, unspecified; E06.3 Autoimmune thyroiditis
CPT/HCPCS: 96361; 93005; 85025; 80048; 36415; 83735; 85610; 80076; 84443; 84484; 84439; 83880; 70450; 71045; 96375; 96374; 99285; J2765; J1200; J2405; J7040

== ENCOUNTER 2024-12-05 04:17 | Emergency (ER) | payer OTHER ==
--- OUTSIDE RECORDS SUMMARY | 2024-12-05 04:20 | XMS REPORT | Continuity of Care Document ---
Author Name Unknown Address [address] [place] [address] Organization [facility] [place] Address [address] [place] [address] Care Team Providers Care Customer Support Agent Name Role Phone Osvaldo FRANC Andree Primary Care Physician SRIRAM BAIRD Attending Clinician Sriram Wesley MD Attending Clinician Payers Payer Name Policy Type Policy Number Effective Date Expirati on Date Source Allergies, Adverse Reactions, Alerts Allergy Name Allergy Type Status Severity Reaction(s) Onset Date Inactive Date Treating Clinician Comments Source NO KNOWN ALLERGIE S Drug Class Active [facility] Social History Social Habit Start Date Stop Date Quantity Comments Source ASSERTION Possible [facility] Tobacco use and exposure 2024-11-05 00:00:00 2024-11-05 00:00:00 Smokeless tobacco non-user [facility] History of Social function 2024-11-05 00:00:00 2024-11-05 00:00:00 [facility] Sex assigned at 1955 00:00:00 1955 00:00:00 [facility] Smoking Status Start Date Stop Date Source Never smoked tobacco [facility] Medications Ordered Medication Name Filled Medication Name Start Date Stop Date Current Medication? Ordering Clinician Indication Dosage Frequency Signature (SIG) Comments Components Source Levothyroxi ne 88 mcg capsule 11-05 15:16: 39 11-05 00:00 :00 No 88ug Take 1 capsule by mouth in the morning. [facility] estradiol-p rogesterone 1-100 mg Cap 11-05 14:24: 21 Yes 200mg Take 200 mg by mouth. [facility] levothyroxi ne 88 mcg tablet 11-05 00:00: 00 Yes [id number] 88ug Take 1 tablet by mouth every morning. [facility] liothyronin e 5 mcg tablet 11-05 00:00: 00 Yes [id number] 5ug Take 1 tablet by mouth in the morning. [facility] Vital Signs Vital Name Observation Time Observation Value Comments S dana Systolic blood pressure 2024-11-05 19:21:00 150 mm[Hg] [facility] Diastolic blood pressure 2024-11-05 19:21:00 84 mm[Hg] [facility] Heart rate 2024-11-05 19:21:00 86 /min [facility] Respiratory rate 2024-11-05 19:21:00 18 /min [facility] Body height 2024-11-05 19:21:[address] [facility] Body weight 2024-11-05 19:21:[address] [facility] BMI 2024-11-05 19:21:00 29.31 kg/m2 [facility] Oxygen saturation in Arterial blood by Pulse oximetry 2024-11-05 19:21:00 95 /min [facility] Encounters Start Date/Time End Date/Time Encounter Type Admission Type Attending Clinicians Care Facility Care Department Encounter ID Source 2024-11-22 00:00:00 2024-11-22 08:46:36 Telephone Sriram Baird [facility] [id number] [facility] 2024-11-18 00:00:00 2024-11-22 08:25:34 Telephone Baird, [facility]Pending [facility] to [facility] [id number] [facility] 2024-11-12 00:00:00 2024-11-12 10:26:46 Telephone Sriram Baird [facility] [id number] [facility] 2024-11-05 15:00:00 2024-11-05 15:24:02 Office Visit R An[facility] [id number] [facility] Notes Date/Time Note Provider Source 2024-11-22 08:44:46 Called and spoke with patient and clarified that she is going to continue taking levothyroxine , will d/c liothyronine and see if her sleep improves. [facility] 2024-11-22 08:33:09 Malena Dove is a 68 year old female calling back to speak with nurse Margaux. She's still not sleeping and tired. She's tired throughout the day. Please give her a call back, it's regarding a boost she suggested for patient. Tamika Chinchilla [facility] 2024-11-22 08:23:39 Spoke with patient, she will hold liothyronine, she states she's been off for almost a week and still isnt sleeping well. Advised patient to stay off medication and let us know in 2-4 weeks if she still isnt sleeping then we can bring her in to reevaluate. Pt verbalized understanding. [facility] 2024-11-21 19:39:53 It was a trial. She can hold the liothyronine for now and see how her sleep goes. [facility] 2024-11-18 09:13:06 Pt having insomnia no matter what time she takes her medication, routed to provider to see what else can be done [facility] 2024-11-18 09:10:38 Copied from [facility] #[id number]. Topic: Clinical - Medical Advice >> Nov 18, 2024 9:08 AM Patient Customizer wrote: Malena Dove is a 68 year old female Pt called regarding rx liothyronine [address] Baird changed directions for her to take medication between 8-9 am rather than at 2pm due to this medication keeping pt awake , pt states after taking the medication between 8-9am she was still unable to go to sleep and it just wasn't working pt states she is no longer going to take the liothyronine 5 mcg tablet requesting call back form nurse please advise [phone] (home) [phone] (work) T Sanya Og [facility] 2024-11-12 10:16:44 Spoke with patient who is experiencing insomnia when taking her liothyronine in the afternoon @ 2pm, talked to provider who stated that patient could take her liothyronine in the morning instead of at 2pm. Pt verbalized understanding. [facility] 2024-11-12 10:07:52 Medication question Yoli Casper [facility]
[2024-12-05] MEDS ORDERED: LORAZEPAM 1 MG TABLET ONE (04:51)
[2024-12-05 05:46] LABS: PT Prothrombin Time 13.0 SECONDS (10-13.0); Protime INR 1.16
[2024-12-05 05:47] LABS: Absolute Lymphocytes (CBC) 1.3 K/uL (0.7-4.9); Hematocrit 40.5 % (36.0-45.0); Hemoglobin 13.9 g/dL (12.0-15.0); MCH 31.0 pg (27.0-35.0); MCHC 34.4 g/dL (32.0-36.0); MCV 90.1 fL (80-100); MPV 9.5 fL (7.6-11.3); Nucleated RBC Absolute Count 0.0 (0-0); Nucleated Red Blood Cells % 0.1 % (0-0); RBC Red Blood Cell Count 4.50 M/uL (3.86-4.86); White Blood Count 5.60 thou/uL (4.3-10.9)
[2024-12-05 05:59] LABS: Influenza A Ag Negative; Influenza B Ag Negative; SARS-CoV-2 Antigen Rapid Res Negative (Negative)
[2024-12-05 06:09] LABS: ALT/SGPT 32 U/L (13-56); AST/SGOT 22 U/L (15-37); Albumin 4.0 g/dL (3.4-5.0); Albumin/Globulin Ratio 1.0 (1.1-1.8); Alkaline Phosphatase 77 U/L (45-117); Anion Gap 9.3 mEq/L (5.0-15.0); BUN Blood Urea Nitrogen 9 mg/dL (7-18); Bilirubin Indirect, Calculated 0.3 mg/dL (0.2-0.8); Globulin 4.1 g/dL (2.3-3.5); Glucose Level 106 mg/dL (74-106); Magnesium 1.9 mg/dL (1.6-2.4); NT PRO-BNP 131 pg/mL (<125); Potassium 3.3 mEq/L (3.5-5.1); Troponin High Sensitivity 6.3 pg/mL (<58.9)
[2024-12-05 06:13] LABS: Thyroid Stimulating Hormone 5.42 uIU/mL (0.358-3.740)
--- NOTE | 2024-12-05 07:05 | EDPHYS ---
Physician Documentation [facility] Name: Malena Mckeon Age: 68 yrs Sex: Female : 1955 Arrival Date: 12/05/2024 Time: 04:17 Bed 6 Private MD: ED Physician Gael Simeon HPI: 12/05 04:29 This 68 yrs old Female presents to ER via Unassigned with complaints of Irrg sp4 heart rate, Dizziness, Near Syncope. 19:33 68 year-old female presents with complaint of palpitations dizziness near syncopal sp4 episode. Patient was recently diagnosed with acute respiratory infection and given steroid and Rocephin shot at her primary care physician's office. Also prescribed Z-Jaquan.. 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 - Infectious Disease History:: Denies. - Social history:: Smoking status: Patient denies any tobacco usage or history of. - Family history:: not pertinent. ROS: 19:33 Constitutional: Negative for fever, chills, and weight loss, positive for irregular sp4 heart rate, positive for dizziness positive for near syncope 19:33 All other systems are negative, Exam: 19:33 Constitutional: This is a well developed, well nourished patient who is awake, alert, sp4 and in no acute distress. Head/Face: Normocephalic, atraumatic. Eyes: Pupils equal round and reactive to light, extra-ocular motions intact. Lids and lashes normal. Conjunctiva and sclera are not injected. Cornea within normal limits. Periorbital areas with no swelling, redness, or edema. ENT: Nares patent. No nasal discharge, no septal abnormalities noted. Tympanic membranes are normal and external auditory canals are clear. Oropharynx with no redness, swelling, or masses, exudates, or evidence of obstruction, uvula midline. Mucous membranes moist. Neck: Trachea midline, no thyromegaly or masses palpated, and no cervical lymphadenopathy. Supple, full range of motion without nuchal rigidity, or vertebral point tenderness. Chest/axilla: Normal chest wall appearance and motion. Nontender with no deformity. No lesions are appreciated. Cardiovascular: Regular rate and rhythm with a normal S1 and S2. No gallops, murmurs, or rubs. No pulse deficits. Respiratory: Lungs have equal breath sounds bilaterally, clear to auscultation and percussion. No rales, rhonchi or wheezes noted. No increased work of breathing, no retractions or nasal flaring. Abdomen/GI: Soft, with normal bowel sounds. No distension or tympany. No guarding or rebound. No evidence of tenderness throughout. Back: No spinal tenderness. No costovertebral tenderness. Skin: Warm, dry with normal turgor. Normal color with no rashes, no lesions, and no evidence of cellulitis. MS/ Extremity: Pulses equal, no cyanosis. Neurovascular intact. Full, normal range of motion. Neuro: Awake and alert, GCS 15, oriented to person, place, time, and situation. Cranial nerves II-XII grossly intact. Motor strength 5/5 in all extremities. Sensory grossly intact. Psych: Awake, alert, with orientation to person, place and time. Behavior, mood, and affect are within normal limits 19:35 ECG was reviewed by the Attending Physician. EKG at 0 4:29 AM normal sinus rhythm sp4 rate 89, normal EKG Vital Signs: 04:47 BP 181 / 104; Pulse 87; Resp 18; Temp 98.1; Pulse Ox 97% on R/A; Weight 64.41 kg; af3 Height 4 ft. 11 in. ; 05:31 BP 137 / 77; Pulse 89; Resp 18; Pulse Ox 94% on R/A; af3 04:47 Body Mass Index 28.68 (64.41 kg, 149.86 cm) af3 Sheri Coma Score: 19:33 Eye Response: spontaneous(4). Motor Response: obeys commands(6). Verbal Response: sp4 oriented(5). Total: 15. MDM: 04:29 Medical Screening Exam initiated sp4 19:36 Differential diagnosis: cardiac arrhythmia, generalized weakness, hyperventilation, sp4 near-syncope, syncope, vertigo. Data reviewed: vital signs, nurses notes, lab test result(s), EKG. Consideration of Admission/Observation Escalation of care including admission/observation considered. ED course: FINDINGS: Lungs: No pulmonary vascular congestion or consolidation. Pleural space: Unremarkable. No pneumothorax. Heart: Unremarkable. No cardiomegaly. Mediastinum: Unremarkable. Bones/joints: No acute fracture visualized. Upper abdomen: No free air in the visualized upper abdomen. IMPRESSION: No acute cardiopulmonary process identified. ED course: Symptoms improved after p.o. lorazepam. Patient states she just had intramuscular glucocorticoid injection. Likely feeling unwell after glucocorticoid administration. Will recommend to finish p.o. Zithromax at home additional recommendation would be to take Valium as needed for anxiety and palpitations. Advised follow-up with primary care physician.. 12/05 04:29 Order name: Basic Metabolic Panel; Complete Time: 06:37 sp4 12/05 04:29 Order name: CBC with Diff; Complete Time: 06:37 sp4 12/05 04:29 Order name: LFT's; Complete Time: 06:37 sp4 12/05 04:29 Order name: Magnesium; Complete Time: 06:37 sp4 12/05 04:29 Order name: NT PRO-BNP; Complete Time: 06:37 sp4 12/05 04:29 Order name: PT-INR; Complete Time: 06:37 sp4 12/05 04:29 Order name: Troponin HS; Complete Time: 06:37 sp4 12/05 04:51 Order name: TSH; Complete Time: 06:37 sp4 12/05 04:51 Order name: COVID-19 Ag + Flu A+B Ag; Complete Time: 06:37 sp4 12/05 06:15 Order name: T4 Free; Complete Time: 06:37 EDMS 12/05 04:29 Order name: XRAY Chest (1 view); Complete Time: 19:35 sp4 12/05 04:29 Order name: Cardiac monitoring; Complete Time: 04:46 sp4 12/05 04:29 Order name: EKG - Nurse/Tech; Complete Time: 04:46 sp4 12/05 04:29 Order name: IV Saline Lock; Complete Time: 04:46 sp4 12/05 04:29 Order name: Labs collected and sent; Complete Time: 04:46 sp4 12/05 04:29 Order name: O2 Per Protocol; Complete Time: 04:46 sp4 12/05 04:29 Order name: O2 Sat Monitoring; Complete Time: 04:46 sp4 EC:29 Rate is 89 beats/min. Rhythm is regular, Normal Sinus Rhythm. QRS Boody is Normal. SC sp4 interval is normal. QRS interval is normal. QT interval is normal. No Q waves. T waves are Normal. No ST changes noted. Clinical impression: Normal ECG. Interpreted by me. Reviewed by me. Administered Medications: 05:01 Drug: LORazepam PO 2 mg PO once Route: PO; af3 07:17 Follow up: Response: No adverse reaction kb4 Disposition Summary: 12/05/24 07:04 Discharge Ordered Notes: Location: Home sp4 Problem: new sp4 Symptoms: have improved sp4 Condition: Stable sp4 Diagnosis - Acute anxiety attack, adverse reaction to glucocorticoid steroids sp4 Followup: sp4 - With: Private Physician - When: 7 - 10 days - Reason: Recheck today's complaints Discharge Instructions: - Discharge Summary Sheet sp4 - Palpitations, [id number] sp4 Forms: - Work release form sp4 - Patient Portal Instructions sp4 Prescriptions: - Valium 5 mg Oral tablet - take 1 tablet ORAL route once daily As needed PRN anxiety; 20 tablet; Refills: sp4 0, Product Selection Permitted Signatures: Dispatcher [employer] EDGael Klein MD MD sp4 Iman Crawford RN RN af3 Leni Clay RN kb4 Corrections: (The following items were deleted from the chart) 04:30 04:30 BASIC METABOLIC PANEL+C.LAB.BRZ ordered. EDMS EDMS 04:30 04:30 CBC+H.LAB.BRZ ordered. EDMS EDMS 04:30 04:30 HEPATIC FUNCTION+C.LAB.BRZ ordered. EDMS EDMS 04:30 04:30 MAGNESIUM+C.LAB.BRZ ordered. EDMS EDMS 04:30 04:30 PROBNP+C.LAB.BRZ ordered. EDMS EDMS 04:30 04:30 PROTIME (+INR)+COAG.LAB.BRZ ordered. EDMS EDMS 04:30 04:30 Troponin High Sensitivity+C.LAB.BRZ ordered. EDMS EDMS 04:30 04:30 Chest Single View+RAD.RAD.BRZ ordered. EDMS EDMS 04:52 04:52 COVID-19 Ag + Flu A+B Ag+I.LAB.BRZ ordered. EDMS EDMS
--- NOTE | 2024-12-05 07:05 | ER ---
Nurse's Notes [facility] Name: Malena Mckeon Age: 68 yrs Sex: Female : 1955 Arrival Date: 12/05/2024 Time: 04:17 Bed 6 Private MD: Diagnosis: Acute anxiety attack, adverse reaction to glucocorticoid steroids Presentation: 12/05 04:47 Chief complaint: Patient states: Nausea, dizziness, and anxious after taking a dose of af3 Trazadone on Friday. Coronavirus screen: At this time, the client does not indicate any symptoms associated with coronavirus-19. Ebola Screen: No symptoms or risks identified at this time. Initial Sepsis Screen: Does the patient meet any 2 criteria? No. Patient's initial sepsis screen is negative. Does the patient have a suspected source of infection? No. Patient's initial sepsis screen is negative. Risk Assessment: Do you want to hurt yourself or someone else? Patient reports no desire to harm self or others. Onset of symptoms was December 04, 2024. 04:47 Method Of Arrival: Wheelchair af3 04:47 Acuity: STEFAN 3 af3 Triage Assessment: 04:53 General: Appears in no apparent distress. comfortable, well groomed, well developed, af3 Behavior is cooperative, appropriate for age, anxious. Pain: Denies pain. Neuro: Level of Consciousness is awake, alert, obeys commands, Oriented to person, place, time, situation, Appropriate for age. Cardiovascular: Patient's skin is warm and dry. Rhythm is sinus rhythm. Respiratory: Airway is patent Respiratory effort is even, unlabored, Respiratory pattern is regular, symmetrical. 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 - Infectious Disease History:: Denies. - Social history:: Smoking status: Patient denies any tobacco usage or history of. - Family history:: not pertinent. Screenin:[address] [facility] ED Fall Risk Assessment (Adult) History of falling in the last 3 months, af3 including since admission No falls in past 3 months (0 pts) Confusion or Disorientation No (0 pts) Intoxicated or Sedated No (0 pts) Impaired Gait No (0 pts) Mobility Assist Device Used No (0 pt) Altered Elimination No (0 pt) Score/Fall Risk Level 0 - 2 = Low Risk Oriented to surroundings, Maintained a safe environment, Educated pt \T\ family on fall prevention, incl call for assistance when getting out of bed. Abuse screen: Denies threats or abuse. Denies injuries from another. Nutritional screening: No deficits noted. Tuberculosis screening: No symptoms or risk factors identified. Assessment: 04:54 General: see triage assessment . af3 05:31 Reassessment: Patient appears in no apparent distress at this time. Patient and/or af3 family updated on plan of care and expected duration. Pain level reassessed. Patient is alert, oriented x 3, equal unlabored respirations, skin warm/dry/pink. Vital Signs: 04:47 BP 181 / 104; Pulse 87; Resp 18; Temp 98.1; Pulse Ox 97% on R/A; Weight 64.41 kg; af3 Height 4 ft. 11 in. ; 05:31 BP 137 / 77; Pulse 89; Resp 18; Pulse Ox 94% on R/A; af3 04:47 Body Mass Index 28.68 (64.41 kg, 149.86 cm) af3 Nahma Coma Score: 19:33 Eye Response: spontaneous(4). Motor Response: obeys commands(6). Verbal Response: sp4 oriented(5). Total: 15. ED Course: 04:21 Patient arrived in ED. gm2 04:29 Gael Simeon MD is Attending Physician. sp4 04:46 No provider procedures requiring assistance completed. Inserted saline lock: 20 gauge al5 in right antecubital area, using aseptic technique. Blood collected. Flushed with 10 mL NS. 04:47 Iman Crawford RN is Primary Nurse. af3 04:50 Triage completed. af3 04:53 Arm band placed on. af3 04:54 Patient has correct armband on for positive identification. Bed in low position. Call af3 light in reach. Provided Education on: call light use . 05:01 XRAY Chest (1 view) In Process Unspecified. EDMS 07:17 IV discontinued, intact, bleeding controlled, No redness/swelling at site. Pressure kb4 dressing applied. Administered Medications: 05:01 Drug: LORazepam PO 2 mg PO once Route: PO; af3 07:17 Follow up: Response: No adverse reaction kb4 Medication: 04:54 VIS not applicable for this client. af3 Outcome: 07:04 Discharge ordered by . sp4 07:16 Discharged to home ambulatory, daughter picked her up and driving her home kb4 07:16 Condition: good 07:16 Discharge instructions given to patient, Instructed on discharge instructions, follow up and referral plans. no drinking with medication, no driving heavy equipment, medication usage, Demonstrated understanding of instructions, follow-up care, medications, Prescriptions given X 1, 07:17 Patient left the ED. kb4 Signatures: Dispatcher [employer] EDMS Gael Simeon MD MD sp4 Caryn Lewis gm2 Margaux Delgado RN RN al5 Iman Crawford RN RN af3 Leni Clay RN RN kb4
--- NOTE | 2024-12-05 08:40 | RAD REPORT ---
EXAM: XR Chest, 1 View CLINICAL HISTORY: The patient is 68 years old and is Female; Chest pain. TECHNIQUE: Single view of the chest. COMPARISON: XR Chest 07/11/2024 report only. FINDINGS: Lungs: No pulmonary vascular congestion or consolidation. Pleural space: Unremarkable. No pneumothorax. Heart: Unremarkable. No cardiomegaly. Mediastinum: Unremarkable. Bones/joints: No acute fracture visualized. Upper abdomen: No free air in the visualized upper abdomen. IMPRESSION: No acute cardiopulmonary process identified. Electronically signed by: Nava Ríos MD 12/05/2024 07:22 AM CDT RP V2 Due to temporary technical issues with the PACS/Shortcut Labs reporting system, reports are being erin d by the in-house radiologist without review as a courtesy to ensure prompt reporting. The interpreting radiologist is fully responsible for the content of the report. Transcribed Date/Time: 12/05/2024 8:39 AM
[2024-12-05 11:14] VITALS: TEMP 98.1
[2024-12-05 11:19] VITALS: BP 137/77; O2SAT 94
== END 2024-12-05 07:17 | disposition home or self-care (01) ==
LOC: ER 04:17
DX: F41.9 Anxiety disorder, unspecified (principal); T38.0X5A Adverse effect of glucocorticoids and synthetic analogues, initial encounter; Z11.52 Encounter for screening for COVID-19
CPT/HCPCS: 36415; 71045; 80048; 80076; 83735; 83880; 84439; 84443; 84484; 85025; 85610; 87428; 93005; 99284

== ENCOUNTER 2024-12-11 12:26 | Emergency (ER) | payer OTHER ==
[2024-12-11] MEDS ORDERED: ONDANSETRON 4 MG/2 ML VIAL ONE (13:07)
[2024-12-11] MEDS ORDERED: NA CHLORIDE 0.9% 1,000 ML ONE (13:07)
[2024-12-11] MEDS ORDERED: DIPHENHYDRAMINE 50 MG/ML VIAL ONE (13:07)
[2024-12-11] MEDS ORDERED: hydrOXYzine HCL 25 MG TAB ONE (13:07)
[2024-12-11 13:14] LABS: Absolute Lymphocytes (CBC) 0.9 K/uL (0.7-4.9); Hematocrit 39.0 % (36.0-45.0); Hemoglobin 13.4 g/dL (12.0-15.0); MCH 30.8 pg (27.0-35.0); MCHC 34.5 g/dL (32.0-36.0); MCV 89.4 fL (80-100); MPV 8.3 fL (7.6-11.3); Nucleated RBC Absolute Count 0.0 (0-0); Nucleated Red Blood Cells % 0.1 % (0-0); RBC Red Blood Cell Count 4.36 M/uL (3.86-4.86); White Blood Count 7.00 thou/uL (4.3-10.9)
[2024-12-11 13:27] LABS: Anion Gap 10.3 mEq/L (5.0-15.0); BUN Blood Urea Nitrogen 7.0 mg/dL (7-18); Glucose Level 154.0 mg/dL (74-106); Potassium 3.3 mEq/L (3.5-5.1)
--- NOTE | 2024-12-11 14:10 | EDPHYS ---
Physician Documentation [facility] Name: Malena Mckeon Age: 68 yrs Sex: Female : 1955 Arrival Date: 12/11/2024 Time: 12:26 Bed 3 Private MD: ED Physician Ayush Keyes HPI: 12/11 13:45 This 68 yrs old Female presents to ER via Ambulatory with complaints of dr5 Allergic Reaction, SHAKES. 13:45 Onset: The symptoms/episode began/occurred 8 day(s) ago. Patient is a 68-year-old dr5 female with history of Debbie's, hyperlipidemia, hypothyroidism, Smith's palsy coming in with concerns that dexamethasone. Historical: - Allergies: 12:38 STEROIDS; dd2 - PMHx: 12:38 Debbie's; High Cholesterol; Hypothyroidism; BELLS PALSEY (Hypothyroidism); dd2 - PSHx: 12:38 None; dd2 - Immunization history:: Adult Immunizations not up to date, Flu vaccine is not up to date. It has been more than one year since last vaccine. - Infectious Disease History:: Denies. - Social history:: Smoking status: Patient denies any tobacco usage or history of. ROS: 14:17 Constitutional: as per hpi dr5 Exam: 14:17 Constitutional: This is a well developed, well nourished patient who is awake, alert, dr5 and in no acute distress. Vital Signs: 12:34 BP 185 / 116; Pulse 101; Resp 18; Temp 98.3; Pulse Ox 100% on R/A; Weight 64.41 kg; dd2 Pain 0/10; 13:32 BP 167 / 82; Pulse 78; Resp 18; Pulse Ox 100% ; ph 12:34 Pain Scale: Adult dd2 Procedures: 13:07 Peripheral line: by aseptic technique a peripheral line was placed in the left dr5 antecubital vein, 20g left AC placed by myself. Good blood flow return and flushes without signs of infiltration. MDM: 12:34 Medical Screening Exam initiated dr5 13:46 Differential diagnosis:. dr5 13:47 Differential diagnosis: anaphylaxis, Anxiety, anemia, electrolyte abnormality, acute dr5 kidney injury. Data reviewed: vital signs, nurses notes, lab test result(s), CBC, white blood cell count, hemoglobin, hematocrit, platelets, electrolytes, sodium, potassium, chloride, serum bicarbonate, BUN, creatinine, serum glucose. Consideration of Admission/Observation Escalation of care including admission/observation considered. Escalation considered if patient did not feel better after medication or electrolyte abnormality. I considered the following discharge prescriptions or medication management in the emergency department I discussed and recommended Over The Counter medications, Medications were administered in the Emergency Department. See MAR. Historians other than the Patient: Daughter/Son: Granddaughter. Care significantly affected by the following chronic conditions: Hyperlipidemia, hypothyroidism. Care significantly affected by the following Social Determinants of Health: Poor access to healthcare and/or lack of insurance, Poor access to transportation, Problems related to employment. Counseling: I had a detailed discussion with the patient and/or guardian regarding the historical points, exam findings, and any diagnostic results supporting the discharge/admit diagnosis, the presence of at least one elevated blood pressure reading (>120/80) during this emergency department visit, lab results, the need for outpatient follow up, for definitive care, a family practitioner, to return to the emergency department if symptoms worsen or persist or if there are any questions or concerns that arise at home. Medication response: Benadryl, hydroxyzine, normal saline. Response to treatment: the patient's symptoms have markedly improved after treatment. Admission orders: after a detailed discussion of the patient's condition and case, the admit orders are written by me. Special discussion: I discussed with the patient/guardian in detail that at this point there is no indication for admission to the hospital. It is understood, however, that if the symptoms persist or worsen the patient needs to return immediately for re-evaluation. Based on the history and exam findings, there is no indication for further emergent testing or inpatient evaluation. I discussed with the patient/guardian the need to see the primary care provider for further evaluation of the symptoms. ED course: Will have patient follow-up primary care doctor this next week. Medication helped with symptoms. Labs drawn per patient's request and printed and given to her. No abnormality noted. All question answered. Strict ER precautions given.. 14:16 ED course: Patient was given magnesium glycinate supplement recommendation. I printed dr5 out form to show correct magnesium form.. 12/11 13:00 Order name: CBC with Diff; Complete Time: 13:20 dr5 12/11 13:00 Order name: BMP; Complete Time: 13:28 dr5 12/11 12:54 Order name: IV Start; Complete Time: : dr5 Administered Medications: 13: Drug: diphenhydrAMINE IVP 25 mg IVP once Route: IVP; Site: left antecubital; ph 14:27 Follow up: Response: No adverse reaction ph 13:28 Drug: NS 0.9% IV 1000 ml IV at 1000 ml once; to be given as a bolus over 60 minutes ph Route: IV; Rate: 1000 ml; Site: left antecubital; 14:27 Follow up: Response: No adverse reaction; IV Status: Completed infusion; IV Intake: ph 1000ml 13: Drug: hydrOXYzine PO 25 mg PO once Route: PO; ph 14:27 Follow up: Response: No adverse reaction ph 13:28 Drug: Ondansetron IVP 4 mg IVP once; over 2 minutes Route: IVP; Site: left antecubital; ph 14:27 Follow up: Response: No adverse reaction; Nausea is decreased ph Disposition: 18:10 Co-signature as Attending Physician, Ayush Keyes MD I reviewed the patient's care rn provided by the Advanced Practice Provider and agree with the diagnosis and treatment plan. Disposition Summary: 12/11/24 14:09 Discharge Ordered Notes: Location: Home dr5 Condition: Stable dr5 Diagnosis - Generalized anxiety disorder dr5 Followup: dr5 - With: Emergency Department - When: As needed - Reason: Worsening of condition Followup: dr5 - With: Private Physician - When: 1 - 2 days - Reason: Recheck today's complaints, Continuance of care, Re-evaluation by your physician Discharge Instructions: - Discharge Summary Sheet dr5 - Generalized Anxiety Disorder, Adult dr5 Forms: - Medication Reconciliation Form dr5 - Patient Portal Instructions dr5 - Leadership Thank You Letter dr5 Prescriptions: - Hydroxyzine HCl 25 mg Oral Tablet - take 1 tablet ORAL route every 6 hours As needed; 30 tablet; Refills: 0, dr5 Product Selection Permitted Signatures: Dispatcher [employer] EDAyush Gonzalez ph D, MD MD rn Hall, Patricia, RN RNAVIS, DIANA, RN RN dd2 Jordan Pool, FRANC-C CORRECTIONS COUNSELOR-Cdr5
--- NOTE | 2024-12-11 14:10 | ER ---
Nurse's Notes [facility] Name: Malena Mckeon Age: 68 yrs Sex: Female : 1955 Arrival Date: 12/11/2024 Time: 12:26 Bed 3 Private MD: Diagnosis: Generalized anxiety disorder Presentation: 12/11 12:34 Chief complaint: Patient states: SHE WAS HEREON 12/05 FOR ALLERGIC REACTION TO A dd2 STEROID SHOT. REPORTS THAT THE SYMPTOMS HAVE WORSENED. REPORTS NOT SLEEPING, NO APPETITE, N/V, SHAKING, JITTERY FEELING ALL OVER, CRYING. Coronavirus screen: At this time, the client does not indicate any symptoms associated with coronavirus-19. Ebola Screen: No symptoms or risks identified at this time. Onset: The symptoms/episode began/occurred 12/05/2024. Anaphylaxis evaluation, no signs or symptoms of anaphylaxis were noted. Initial Sepsis Screen: Does the patient meet any 2 criteria? No. Patient's initial sepsis screen is negative. Does the patient have a suspected source of infection? No. Patient's initial sepsis screen is negative. Risk Assessment: Do you want to hurt yourself or someone else? Patient reports no desire to harm self or others. Onset of symptoms was December 05, 2024. 12:34 Method Of Arrival: Ambulatory dd2 12:34 Acuity: STEFAN 3 dd2 Triage Assessment: 12:38 General: Appears uncomfortable, well groomed, well nourished, Behavior is cooperative, dd2 appropriate for age, anxious, crying. Pain: Denies pain. Neuro: Reports dizziness. Respiratory: Reports shortness of breath at rest on exertion Airway is patent Respiratory effort is even, unlabored, Respiratory pattern is regular, symmetrical. GI: Reports intolerance of fluids, intolerance of food, nausea, vomiting. Historical: - Allergies: 12:38 STEROIDS; dd2 - PMHx: 12:38 Debbie's; High Cholesterol; Hypothyroidism; BELLS PALSEY (Hypothyroidism); dd2 - PSHx: 12:38 None; dd2 - Immunization history:: Adult Immunizations not up to date, Flu vaccine is not up to date. It has been more than one year since last vaccine. - Infectious Disease History:: Denies. - Social history:: Smoking status: Patient denies any tobacco usage or history of. Screenin:29 [facility] ED Fall Risk Assessment (Adult) History of falling in the last 3 months, ph including since admission No falls in past 3 months (0 pts) Confusion or Disorientation No (0 pts) Intoxicated or Sedated No (0 pts) Impaired Gait No (0 pts) Mobility Assist Device Used No (0 pt) Altered Elimination No (0 pt) Score/Fall Risk Level 0 - 2 = Low Risk Oriented to surroundings, Maintained a safe environment, Hourly rounding (assess needs \T\ fall precautionary measures) done. Abuse screen: Denies threats or abuse. Denies injuries from another. Nutritional screening: No deficits noted. Tuberculosis screening: No symptoms or risk factors identified. Assessment: 13:31 General: Appears in no apparent distress. comfortable, well groomed, Behavior is ph cooperative, appropriate for age, anxious. Pain: Denies pain. Neuro: Level of Consciousness is awake, alert, obeys commands, Oriented to person, place, time, situation. Cardiovascular: Capillary refill < 3 seconds in bilateral fingers Patient's skin is warm and dry. Respiratory: Airway is patent Respiratory effort is even, unlabored, Respiratory pattern is regular, symmetrical, Breath sounds are clear bilaterally. GI: Reports nausea, Patient currently denies abdominal pain, vomiting. Derm: Skin is pink, warm \T\ dry. 14:28 Reassessment: Patient appears in no apparent distress at this time. Patient and/or ph family updated on plan of care and expected duration. Pain level reassessed. Patient is alert, oriented x 3, equal unlabored respirations, skin warm/dry/pink. Patient states feeling better. Patient states symptoms have improved. Vital Signs: 12:34 BP 185 / 116; Pulse 101; Resp 18; Temp 98.3; Pulse Ox 100% on R/A; Weight 64.41 kg; dd2 Pain 0/10; 13:32 BP 167 / 82; Pulse 78; Resp 18; Pulse Ox 100% ; ph 12:34 Pain Scale: Adult dd2 ED Course: 12:29 Patient arrived in ED. ts1 12:33 Jordan Pool FNP-C is PHCP. dr5 12:33 Ayush Keyes MD is Attending Physician. dr5 12:38 Triage completed. dd2 12:38 Arm band placed on right wrist. dd2 13:06 Gardiner, Luanne, RN is Primary Nurse. ph 13:07 BMP Sent. dr5 13:07 CBC with Diff Sent. dr5 13:07 Initial lab(s) drawn, by ED staff, sent to lab. Inserted saline lock: 20 gauge in left ph antecubital area, using aseptic technique. Blood collected. Flushed with 10 mL NS. 13:30 Patient has correct armband on for positive identification. Bed in low position. Call ph light in reach. Side rails up X 1. Pulse ox on. NIBP on. Door closed. Noise minimized. Warm blanket given. Pillow given. 14:28 No provider procedures requiring assistance completed. IV discontinued, intact, ph bleeding controlled, No redness/swelling at site. Pressure dressing applied. Administered Medications: 13:28 Drug: diphenhydrAMINE IVP 25 mg IVP once Route: IVP; Site: left antecubital; ph 14:27 Follow up: Response: No adverse reaction ph 13:28 Drug: NS 0.9% IV 1000 ml IV at 1000 ml once; to be given as a bolus over 60 minutes ph Route: IV; Rate: 1000 ml; Site: left antecubital; 14:27 Follow up: Response: No adverse reaction; IV Status: Completed infusion; IV Intake: ph 1000ml 13:28 Drug: hydrOXYzine PO 25 mg PO once Route: PO; ph 14:27 Follow up: Response: No adverse reaction ph 13:28 Drug: Ondansetron IVP 4 mg IVP once; over 2 minutes Route: IVP; Site: left antecubital; ph 14:27 Follow up: Response: No adverse reaction; Nausea is decreased ph Medication: 14:29 VIS not applicable for this client. ph Intake: 14:27 IV: 1000ml; Total: 1000ml. ph Outcome: 14:09 Discharge ordered by . dr5 14:28 Discharged to home ambulatory, with friend, ph 14:28 Condition: good 14:28 Discharge instructions given to patient, Instructed on discharge instructions, follow up and referral plans. medication usage, Demonstrated understanding of instructions, follow-up care, medications, Prescriptions given X 1, 14:29 Patient left the ED. ph Signatures: Luanne Gardiner RN RN ph Samina Bull, PAS PAS ts1 REBEL MILLER RN RN dd2 Jordan Pool, HUSBANDRY PERSON-C HUSBANDRY PERSON-Cdr5
[2024-12-11 16:34] VITALS: BP 167/82; TEMP 98.3; O2SAT 100
== END 2024-12-11 14:29 | disposition home or self-care (01) ==
LOC: ER 12:26
DX: F41.1 Generalized anxiety disorder (principal)
CPT/HCPCS: 96361; 85025; 80048; 36415; 96375; 96374; 99284; J1200; J2405; J7030